=== PATIENT | female | born 1945 | race Two or more races ===

== ENCOUNTER 2024-09-04 06:14 | Day surgery (SDC) | payer BC, MEDICAID ==
[2024-09-04] VITALS (8 sets, daily range): BP systolic 89–116; BP diastolic 45–65; PULSE 65–88; RESP 12–19; O2SAT 90–100
[~2024-09-04] VITALS: Ht 170.2 cm; Wt 79.8 kg
[~2024-09-04 06:14] MED LIST: APIX5TAB PO; ATOR20TA50 PO; BENA-36 PO; CHOL20007 PO; DILT240C59 PO; ISOS1TAB28 PO; LORA10CA PO; NITR0.4S29 SL; TRIA37.586 PO
[2024-09-04] MEDS ORDERED: IOHEXOL 350 MG/ML 100ML IJ ONE (07:28)
[2024-09-04] MEDS ORDERED: ANGIOMAX 250 MG VIAL IV ONE (07:46)
[2024-09-04] MEDS ORDERED: VERAPAMIL 2.5MG/ML INJ 2ML VIAL IV ONE (07:46)
[2024-09-04] MEDS ORDERED: SODIUM CHL 0.9% 0 ML ONE (07:47)
[2024-09-04] MEDS ORDERED: MIDAZOLAM HCL 2MG/2ML 2ml VIAL (1mg/ml) ONE (07:47)
[2024-09-04] MEDS ORDERED: fentaNYL CITRATE 100 MCG/2 ML VL ONE (07:47)
[2024-09-04] MEDS ORDERED: LIDOCAINE 2%HCL (LOCAL ANESTH.) INJ 20ML MDV ONE (07:48)
[2024-09-04] MEDS ORDERED: IODIXANOL 320MG/ML 100ML BTL IV ONE (08:02)
[2024-09-04] MEDS ORDERED: HEPARIN SODIUM (PORCINE) 5000 UNITS/ML 1ML VIAL ONE (08:13)
--- NOTE | 2024-09-04 08:22 | DVHOP2 ---
Operative Report Operative Report CARDIAC CAMPUS COORDINATOR PROCEDURE REPORT [place], [place] Date of Service: 09/04/24 Behavior Clinician: Poly Otoole MD PROCEDURES PERFORMED: Coronary angiogram, left heart catheterization, conscious sedation administration and supervision, less than 15 minutes; fluoroscopy use and interpretation. PREOPERATIVE DIAGNOSES: unstable accelerating angina POSTOP DIAGNOSIS: microvascular disease DESCRIPTION OF PROCEDURE: The patient or appropriate family signed informed consent understanding the risks, benefits and alternatives of the procedure, they wished to proceed. The patient was brought to the cardiac general production laborer in n.p.o. state. The patient was prepped in a sterile fashion. Sedation was used per cardiac cath protocol. I administered 2 mL of 2% lidocaine to the right wrist. With an antegrade front wall puncture. I cannulated the right radial artery and placed a 6-Turkmen Glidesheath slender. Next, an intra-arterial spasmolytic was administered. Next, a - 6French [place]wich catheter anguide and were used for coronary angiogram and LVEDP measurement and pressure pullback. At the completion of procedure, all guides and wires were removed, and there were no immediate complications. FINDINGS: RCA: Moderate vessel off the right sinus of Valsalva, there is no severe flow limiting stenosis. sluggish flow suggestive of microvascular disease LEFT MAIN: Moderate size left main, it bifurcates into LAD and circumflex. no stenosis CIRCUMFLEX: Moderate caliber vessel coming off the left main with no flow limiting stenosis. mild 30% mid vessel plaque. LAD: LAD is a moderate caliber vessel coming of the left main. no severe stenosis. slugghis flow with prominent venous flow noted LVEDP of 11 mmhg CONCLUSIONS: 1. mild CAD 2. microvascular disease, consider adding ranexa PLAN: Aggressive risk factor modification and medical management for the patient. POLY OTOOLE MD Sep 04, 2024 08:22
--- NOTE | 2024-09-04 08:25 | DVH ---
EXAM: XR Chest, 1 View CLINICAL INDICATION: pre-procedure/LHC TECHNIQUE: Frontal view of the chest. COMPARISON: None FINDINGS: LUNGS AND PLEURAL SPACES: Unremarkable. No consolidation. No pneumothorax. HEART: Unremarkable. No cardiomegaly. MEDIASTINUM: Unremarkable. Normal mediastinal contour. BONES/JOINTS: Unremarkable. No acute fracture. OTHER FINDINGS: . None. IMPRESSION: No acute cardiopulmonary process.
--- NOTE | 2024-09-04 10:03 | ECG ---
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
== END 2024-09-04 10:35 | disposition home or self-care (01) ==
LOC: CATH 06:14
PROVIDERS: ATTEND Internal Medicine
DX: I25.110 Atherosclerotic heart disease of native coronary artery with unstable angina pectoris (principal); Z87.891 Personal history of nicotine dependence
CPT/HCPCS: 71045; 93005; 93458; C1894; J1644; J2250; J3010; J7030; Q9967; 99152